=== PATIENT | male | born 1985 | race African-American/Black ===

== ENCOUNTER 2020-03-15 16:11 | Emergency (ER) | payer SELFPAY ==
[~2020-03-15] VITALS: Ht 167.6 cm; Wt 92.5 kg
[2020-03-15 16:23] VITALS: BP 133/73; Ht 167.6 cm; Wt 92.5 kg
== END 2020-03-15 18:29 | disposition home or self-care (01) ==
LOC: ED 16:11
DX: M54.2 Cervicalgia (principal); R22.1 Localized swelling, mass and lump, neck; Y04.0XXA Assault by unarmed brawl or fight, initial encounter; Y93.89 Activity, other specified; Y92.89 Other specified places as the place of occurrence of the external cause; Y99.8 Other external cause status